=== PATIENT | male | born 1950 | race Caucasian/White ===

== ENCOUNTER 2018-07-05 18:16 | Emergency (ER) | payer OTHER, MEDICARE ==
--- NOTE | 2018-07-05 18:44 | ER Document Report ---
ED General - General Mode of Arrival: Medic Information source: Patient, Relative <JOHANNA KAMINSKI - Last Filed: 07/06/18 04:10> <DANTE JENNINGS - Last Filed: 07/06/18 04:16> - General Stated Complaint: SYNCOPE Time Seen by Provider: 07/05/18 18:36 Notes: 68 y.o male with DM, HLD, HTN, a PMHX of prostate cancer and a PSHx of open heart surgery for mitral valve replacement about 10 years ago presents to the ED via EMS s/p syncopal episode while at work. Pt's reports that she was called while he was working and was told that he lost consciousness, hit his head and that EMS was called. 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 Pt reports that he was outside and when he walked back inside he started to not feel well and tried to sit down. Pt is repeating his words and phrases, and nurse that saw him immediately upon arriving to the ED report that his repeating seems to be worsening as he is repeating more words that he was initially. Nurse denies EMS reporting any one sided weakness, facial droop or abnormal BGL. reports that yesterday he was well but that once last week when he came home from work he had to sit down because he was lightheaded and diaphoretic, she denies any LOC at that time. Pt denies any CP when trying to sit down prior to losing consciousness. He reports a current headache. (JOHANNA KAMINSKI) - Related Data Allergies/Adverse Reactions: strawberry Allergy (Verified 07/05/18 20:35) Past Medical History - General Information source: Patient - Social History Smoking Status: Current Some Day Smoker Chew tobacco use (# tins/day): No Smoking Education Provided: Yes Frequency of alcohol use: Occasional Drug Abuse: None Lives with: Spouse/Significant other <JOHANNA KAMINSKI - Last Filed: 07/06/18 04:10> - Social History Family History: None <DANTE JENNINGS - Last Filed: 07/06/18 04:16> Review of Systems - Review of Systems Constitutional: See HPI, Other - diaphoretic and lightheadedness last week EENT: No symptoms reported Cardiovascular: See HPI. denies: Chest pain Respiratory: No symptoms reported Gastrointestinal: No symptoms reported Genitourinary: No symptoms reported Male Genitourinary: No symptoms reported Musculoskeletal: No symptoms reported Skin: No symptoms reported Hematologic/Lymphatic: No symptoms reported Neurological/Psychological: See HPI, Lost consciousness, Headaches, Speech impairment - repeating words and phrases, Other - hit to head -: Yes All other systems reviewed and negative <JOHANNA KAMNISKI - Last Filed: 07/06/18 04:10> Physical Exam <JOHANNA KAMINSKI - Last Filed: 07/06/18 04:10> <DANTE JENNINGS - Last Filed: 07/06/18 04:16> - Vital signs Vitals: BP 142/72 H 07/05/18 18:46 - Notes Notes: PHYSICAL EXAM GENERAL: Alert and appears somewhat confused. HEAD: Normocephalic. Abrasion to RT maxilla and RT sikh. EYES: Pupils equal, round, and reactive to light. Extraocular movements intact. ENT: Oral mucosa moist, tongue midline. NECK: Initially in C-collar, after cleared pt had full ROM. Supple. Trachea midline. LUNGS: Clear to auscultation bilaterally, no wheezes, rales, or rhonchi. Breathing heavily. HEART: Regular rate and rhythm. No murmurs, gallops, or rubs. ABDOMEN: Soft, non-tender. Non-distended. Bowel sounds present in all 4 quadrants. No guarding, rebound, or rigidity. EXTREMITIES: Moves all 4 extremities spontaneously. No edema. No cyanosis. NEUROLOGICAL: Alert. Repetitive speech. Confused when asked questions, oriented to persona and time but disoriented to place. Pt is able to follow commands, however he is slow. Finger to nose test intact. Cranial nerves II through XII grossly intact. Biceps and patellar DTRs 2+ bilaterally. PSYCH: appears anxious. Poor eye contact. SKIN: Warm, dry, normal turgor. Abrasion to RT maxilla and RT sikh. (JOHANNA KAMINSKI) Course - Laboratory Result Diagrams: 07/05/18 18:45 07/05/18 18:45 <JOHANNA KAMINSKI - Last Filed: 07/06/18 04:10> - Laboratory Result Diagrams: 07/05/18 18:45 07/05/18 18:45 <DANTE JENNINGS - Last Filed: 07/06/18 04:16> - Re-evaluation Re-evalutation: 07/05/18 21:28 CBC shows leukocytosis at 18.1, coags normal, CMP shows low CO2 at 19, creatinine is bumped at 1.29, I have no baseline to compare to, cardiac enzymes negative, CT scan of the head is negative, CT scan of the cervical spine shows degenerative disc disease but no acute fracture or malalignment. Patient has had complete clearing of his neurologic status while in the emergency department, on recheck he is now alert and oriented to person place and time, has returned to his baseline per family, I see no neurologic deficits at this time either. Presentation is consistent with a concussion. NIH at this time is 0. Patient will be discharged to home. He has had multiple of these syncopal episodes, usually associated with working in the heat. Patient now that he is alert relates a history of passing out 1 week ago in a similar situation and again today having been outside feeling like he was getting overheated so he came inside and he passed out again. We did discuss that was very important with his history of having had a mitral valve replacement and a stent in the past that he follow-up with a fitter welder for Holter monitor and a stress test as well as possible echo as an outpatient but currently he has not had any murmur, any hypotension or any arrhythmias on the monitor patient will be discharged to home. (DANTE JENNINGS) - Vital Signs Vital signs: Temp Pulse Resp BP Pulse Ox 75 17 143/71 H 96 07/05/18 19:04 07/05/18 21:01 07/05/18 21:01 07/05/18 21:01 - Laboratory Laboratory results interpreted by me: 07/05/18 07/05/18 18:45 18:45 WBC 18.1 H RDW 14.2 H Seg Neuts % (Manual) 90 H Lymphocytes % (Manual) 6 L Abs Neuts (Manual) 16.3 H Carbon Dioxide 19 L Creatinine 1.29 H Est GFR (Non-Af Amer) 55 L Glucose 139 H Alkaline Phosphatase 171 H - EKG Interpretation by Me Additional EKG results interpreted by me: 07/05/18 21:31 EKG shows sinus rhythm at a rate of 88, PVCs, right bundle branch block, no ST segment elevations or depressions, no T-wave inversions per my interpretation. ( DANTE JENNINGS) Discharge <JOHANNA KAMINSKI - Last Filed: 07/06/18 04:10> <DANTE JENNINGS - Last Filed: 07/06/18 04:16> - Discharge Clinical Impression: Syncope Qualifiers: Syncope type: unspecified Qualified Code(s): R55 - Syncope and collapse Concussion Qualifiers: Encounter type: initial encounter Loss of consciousness presence/duration: with LOC of 30 min or less Qualified Code(s): S06.0X1A - Concussion with loss of consciousness of 30 minutes or less, initial encounter Condition: Stable Disposition: HOME, SELF-CARE Additional Instructions: Today passed out and hit your head. It appears the passing out likely came from working in the heat however you do have a history of heart problems and valve replacement. I strongly recommend that you follow-up with the on-call fitter welder Dr. Hogan to have a Holter monitor placed. They may also wish to perform a stress test or an ultrasound of your heart given your history of having a stent and a mitral valve replacement. You also have sustained a concussion from hitting your head. Should you develop vomiting, lose consciousness again, become confused or have any other new or concerning symptoms please return to the emergency department. Forms: Return to Work Referrals: TAMIR HOGAN MD [ACTIVE STAFF] - Follow up tomorrow Scribe Attestation: 07/06/18 04:12 I personally performed the services described in the documentation, reviewed and edited the documentation which was dictated to the scribe in my presence, and it accurately records my words and actions. (DANTE JENNINGS) Scribe Documentation - Scribe Written by Won:: Won Berger 07/05/18 1843 acting as scribe for :: Blake <JOHANNA KAMINSKI - Last Filed: 07/06/18 04:10>
[2018-07-05 19:09] LABS: HEMATOCRIT 45.7 % (37.9-51.0); MEAN CORPUSCULAR HEMOGLOBIN 27.1 pg (27.0-33.4); MEAN CORPUSCULAR HGB CONC 32.8 g/dL (32.0-36.0); MEAN CORPUSCULAR VOLUME 83 fl (80-97); PLATELET COUNT 212 10^3/uL (150-450); RED BLOOD COUNT 5.52 10^6/uL (4.35-5.55); RED CELL DISTRIBUTION WIDTH 14.2 % (11.5-14.0); WHITE BLOOD COUNT 18.1 10^3/uL (4.0-10.5)
[2018-07-05 19:15] LABS: INTERNATIONAL RATION (INR) 0.94; PROTHROMBIN TIME 13.1 SEC (11.4-15.4)
[2018-07-05 19:16] LABS: PARTIAL THROMBOPLASTIN TIME 24.2 SEC (23.5-35.8)
--- NOTE | 2018-07-05 19:29 | RADIOLOGY REPORT (SQ) ---
EXAM DESCRIPTION: CT HEAD WITHOUT COMPLETED DATE/TIME: 07/05/2018 7:03 pm REASON FOR STUDY: head injury COMPARISON: None. TECHNIQUE: Axial images acquired through the brain without intravenous contrast. Images reviewed wi th bone, brain and subdural windows. Additional sagittal and coronal reconstructions were generated. Images stored on PACS. All CT scanners at this facility use dose modulation, iterative reconstruction, and/or weight based d osing when appropriate to reduce radiation dose to as low as reasonably achievable (ALARA). [facility]: Dose Right [facility]: CareDose [facility]: Dose Right [facility]: Teradose 4D [facility]: [employer] RADIATION DOSE: CT Rad equipment meets quality standard of care and radiation dose reduction techniq ues were employed. CTDIvol: 55.2 mGy. DLP: 1112 mGy-cm. mGy. LIMITATIONS: None. FINDINGS: VENTRICLES: Normal size and contour. CEREBRUM: No masses. No hemorrhage. No midline shift. No evidence for acute infarction. Normal gra y/white matter differentiation. No areas of low density in the white matter. CEREBELLUM: No masses. No hemorrhage. No alteration of density. No evidence for acute infarction. EXTRAAXIAL SPACES: No fluid collections. No masses. ORBITS AND GLOBE: What appears to be a scleral buckle in circles the right optic globe. CALVARIUM: No fracture. PARANASAL SINUSES: No fluid or mucosal thickening. SOFT TISSUES: No mass or hematoma. OTHER: No other significant finding. IMPRESSION: NORMAL BRAIN CT WITHOUT CONTRAST. EVIDENCE OF ACUTE STROKE: NO. COMMENT: Quality ID # 436: Final reports with documentation of one or more dose reduction techniques (e.g., Automated exposure control, adjustment of the mA and/or kV according to patient size, use of iterative reconstruction technique) TECHNICAL DOCUMENTATION: JOB ID: [id number] [employer]- All Rights Reserved Reading location - IP/workstation name: [email or web address]
[2018-07-05 19:34] LABS: ABSOLUTE LYMPHOCYTES# (MANUAL) 1.1 10^3/uL (0.5-4.7); ABSOLUTE MONOCYTES # (MANUAL) 0.7 10^3/uL (0.1-1.4); ABSOLUTE NEUTROPHILS# (MANUAL) 16.3 10^3/uL (1.7-8.2); ALANINE AMINOTRANSFERASE 42 U/L (21-72); ALBUMIN 4.3 g/dL (3.5-5.0); ALKALINE PHOSPHATASE 171 U/L (38-126); ANION GAP 17 (5-19); ASPARTATE AMINO TRANSFERASE 37 U/L (17-59); BASOPHILS % (MANUAL) 0 % (0-2); BILIRUBIN,DIRECT 0.3 mg/dL (0.0-0.4); BILIRUBIN,TOTAL 0.6 mg/dL (0.2-1.3); BLOOD UREA NITROGEN 16 mg/dL (7-20); CALCIUM 9.3 mg/dL (8.4-10.2); CARBON DIOXIDE 19 mmol/L (22-30); CHLORIDE 107 mmol/L (98-107); CREATINE KINASE 114 U/L (55-170); EOSINOPHILS % (MANUAL) 0 % (0-6); GLUCOSE 139 mg/dL (75-110); LYMPHOCYTES % (MANUAL) 6 % (13-45); MONOCYTES % (MANUAL) 4 % (3-13); POTASSIUM 4.3 mmol/L (3.6-5.0); SEGMENTED NEUTROPHILS % (MAN) 90 % (42-78); SODIUM 142.6 mmol/L (137-145); TOTAL CELLS COUNTED 100; TOTAL PROTEIN 7.2 g/dL (6.3-8.2)
[2018-07-05 19:35] LABS: ANISOCYTOSIS SLIGHT; OVALOCYTES SLIGHT; PLATELET COMMENT ADEQUATE; POIKILOCYTOSIS SLIGHT
--- NOTE | 2018-07-05 19:35 | RADIOLOGY REPORT (SQ) ---
EXAM DESCRIPTION: CT CERVICAL SPINE WITHOUT COMPLETED DATE/TIME: 07/05/2018 7:03 pm REASON FOR STUDY: LOC, hit head COMPARISON: None. TECHNIQUE: Axial images acquired through the cervical spine without intravenous contrast. Images re viewed with lung, soft tissue and bone windows. Reconstructed coronal and sagittal MPR images review ed. Images stored on PACS. All CT scanners at this facility use dose modulation, iterative reconstruction, and/or weight based d osing when appropriate to reduce radiation dose to as low as reasonably achievable (ALARA). [facility]: Dose Right [facility]: CareDose [facility]: Dose Right [facility]: Teradose 4D [facility]: [employer] RADIATION DOSE: CT Rad equipment meets quality standard of care and radiation dose reduction techniq ues were employed. CTDIvol: 20.1 mGy. DLP: 426 mGy-cm. mGy. LIMITATIONS: None. FINDINGS: ALIGNMENT: Anatomic. MINERALIZATION: Normal. VERTEBRAL BODIES: No fractures or dislocation. DISCS: Disc spaces narrowed from C4-C7. Small anterior and posterior osteophytes are present at thes e levels. FACETS, LATERAL MASSES, POSTERIOR ELEMENTS: Mild hypertrophic facet changes in the mid cervical spine , right more than left. HARDWARE: None in the spine. VISUALIZED RIBS: No fractures. LUNG APICES AND SOFT TISSUES: No significant or acute findings. OTHER: No other significant finding. IMPRESSION: Degenerative disc disease, spondylosis, and facet arthropathy. No acute abnormality. TECHNICAL DOCUMENTATION: JOB ID: [id number] Quality ID # [id number]: Final reports with documentation of one or more dose reduction techniques (e.g., Au tomated exposure control, adjustment of the mA and/or kV according to patient size, use of iterative reconstruction technique) 2010 [employer]- All Rights Reserved Reading location - IP/workstation name: [email or web address]
[2018-07-05 19:44] LABS: CREATINE KINASE MB 1.86 ng/mL (<4.55); TROPONIN I < 0.012 ng/mL
[2018-07-05] MEDS ORDERED: NORMAL SALINE 1000 ML 1,000 ML IV ONE (20:08)
[2018-07-05] MEDS ORDERED: KETOROLAC TROMETHAMINE INJ/PF 30 MG/1 ML SDV IV ONE (21:30)
[2018-07-05 21:43] VITALS: BP 143/71
--- NOTE | 2018-07-05 23:32 | EKG REPORT ---
SEVERITY:- ABNORMAL ECG - SINUS TACHYCARDIA PAIRED VENTRICULAR PREMATURE COMPLEXES RIGHT BUNDLE BRANCH BLOCK BORDERLINE INFERIOR Q WAVES : Confirmed by: Carleen To MD 05-Jul-2018 23:31:53
== END 2018-07-05 21:59 | disposition home or self-care (01) ==
LOC: ER 18:16
DX: R55 Syncope and collapse (principal); S06.0X1A Concussion with loss of consciousness of 30 minutes or less, initial encounter; W18.30XA Fall on same level, unspecified, initial encounter; Y99.0 Civilian activity done for income or pay; F17.200 Nicotine dependence, unspecified, uncomplicated; E11.9 Type 2 diabetes mellitus without complications; Z85.46 Personal history of malignant neoplasm of prostate; Z95.2 Presence of prosthetic heart valve
CPT/HCPCS: 93005; 99285; 96361; 96374; 36415; 82553; 82550; 85025; 85610; 85730; 80053; 84484; 70450; 72125; 93010; J1885; J7030

== ENCOUNTER 2018-11-09 15:42 | Emergency (ER) | payer OTHER, MEDICARE ==
--- NOTE | 2018-11-09 15:48 | ER Document Report ---
ED General - General Stated Complaint: SHORTNESS OF BREATH Time Seen by Provider: 11/09/18 15:46 TRAVEL OUTSIDE OF THE [place] IN LAST 30 DAYS: No - HPI Patient complains to provider of: Syncope Notes: Patient here for evaluation of syncope. 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 Patient states he think he has had as he does have pain around his work. Patient otherwise denies any other trauma denies any other changes in his daily regimen states they prior was feeling fine no recent travel or sick contacts or recent antibiotics. Patient upon my evaluation denies any pain denies any chest pain abdominal pain. Patient does have a history of syncope in the past states he recently saw his customer service dispatcher is scheduled to have a wireless monitor implanted in his chest. Patient states his customer service dispatcher is concerned as he had PVCs at his last visit less than 48 hours prior to today - Related Data Allergies/Adverse Reactions: strawberry Allergy (Verified 11/09/18 16:46) Past Medical History - Social History Smoking Status: Unknown if Ever Smoked Family History: None Renal/ Medical History: Denies: Hx Peritoneal Dialysis Review of Systems - Review of Systems Constitutional: No symptoms reported EENT: No symptoms reported Cardiovascular: Syncope Respiratory: No symptoms reported Gastrointestinal: No symptoms reported Genitourinary: No symptoms reported Male Genitourinary: No symptoms reported Musculoskeletal: No symptoms reported Skin: No symptoms reported Hematologic/Lymphatic: No symptoms reported Neurological/Psychological: No symptoms reported -: Yes All other systems reviewed and negative Physical Exam - Vital signs Vitals: BP 124/62 11/09/18 15:47 Interpretation: Normal - General General appearance: Appears well, Alert - HEENT Head: Normocephalic, Atraumatic Eyes: Normal Pupils: PERRL - Respiratory Respiratory status: No respiratory distress Chest status: Nontender Breath sounds: Normal Chest palpation: Normal - Cardiovascular Rhythm: Regular Heart sounds: Normal auscultation Murmur: No - Abdominal Inspection: Normal Distension: No distension Bowel sounds: Normal Tenderness: Nontender Organomegaly: No organomegaly - Back Back: Normal, Nontender - Extremities General upper extremity: Normal inspection, Nontender, Normal color, Normal ROM , Normal temperature General lower extremity: Normal inspection, Nontender, Normal color, Normal ROM , Normal temperature, Normal weight bearing. No: Kiko's sign - Neurological Neuro grossly intact: Yes Cognition: Normal Orientation: AAOx4 Felix Coma Scale Eye Opening: Spontaneous Felix Coma Scale Verbal: Oriented Felix Coma Scale Motor: Obeys Commands [place] Coma Scale Total: 15 Speech: Normal Motor strength normal: LUE, RUE, LLE, RLE Sensory: Normal - Psychological Associated symptoms: Normal affect, Normal mood - Skin Skin Temperature: Warm Skin Moisture: Dry Skin Color: Normal Course - Re-evaluation Re-evalutation: 11/09/18 21:06 Patient from previous visit does have an increase in his creatinine with low bicarb possibly underlying dehydration patient did receive IV fluids. D-dimer troponins x2 were negative EKG does not show any acute changes. Patient was able ambulate around the ER without any difficulty. No concerning etiology for his syncope at this time patient does have good follow-up for the patient is good for outpatient evaluation and discharge - Vital Signs Vital signs: Temp Pulse Resp BP Pulse Ox 97.4 F 75 15 124/65 97 11/09/18 16:12 11/09/18 16:50 11/09/18 20:01 11/09/18 20:01 11/09/18 20:01 - Laboratory Result Diagrams: 11/09/18 16:07 11/09/18 16:07 Laboratory results interpreted by me: 11/09/18 11/09/18 11/09/18 16:07 16:07 17:30 WBC 12.8 H RDW 14.2 H Seg Neutrophils % 87.2 H Lymphocytes % 5.5 L Absolute Neutrophils 11.2 H Chloride 109 H Carbon Dioxide 19 L Creatinine 1.43 H Est GFR (Non-Af Amer) 49 L Alkaline Phosphatase 150 H Total Protein 6.2 L Urine Protein 30 H Urine Ketones TRACE H Discharge - Discharge Clinical Impression: Syncope Qualifiers: Syncope type: unspecified Qualified Code(s): R55 - Syncope and collapse Condition: Good Disposition: HOME, SELF-CARE Instructions: Syncopal Episode ([facility]) Additional Instructions: At this time your laboratory studies not show any critical pathology for your passing out episode today. I recommend following up with her primary care physician and your customer service dispatcher. Possible etiology of your passing out could be dehydration as that orthostatics are vital signs whenever he had to move around or indicative of dehydration also slight elevation in your renal function. Cardiac enzymes are negative would recommend eating a healthy diet drinking plenty of water and fluids return to the ER for any concerning symptoms follow-up with your primary care physician. Referrals: YANY UGALDE MD [Primary Care Provider] - Follow up as needed
[2018-11-09] MEDS ORDERED: NORMAL SALINE 1000 ML 1,000 ML IV ONE (15:49)
[2018-11-09] MEDS ORDERED: NORMAL SALINE 500 ML IV ONE (15:49)
[2018-11-09 16:40] LABS: ABSOLUTE BASOPHILS # (AUTO) 0.1 10^3/uL (0.0-0.2); ABSOLUTE EOSINOPHILS # (AUTO) 0.1 10^3/uL (0.0-0.6); ABSOLUTE LYMPHOCYTES (AUTO) 0.7 10^3/uL (0.5-4.7); ABSOLUTE MONOCYTES (AUTO) 0.8 10^3/uL (0.1-1.4); ABSOLUTE NEUT (AUTO) 11.2 10^3/uL (1.7-8.2); BASOPHILS % (AUTO) 0.5 % (0-2); EOSINOPHILS % (AUTO) 0.6 % (0-6); HEMATOCRIT 43.7 % (37.9-51.0); HEMOGLOBIN 14.3 g/dL (13.5-17.0); LYMPHOCYTES % (AUTO) 5.5 % (13-45); MEAN CORPUSCULAR HEMOGLOBIN 27.2 pg (27.0-33.4); MEAN CORPUSCULAR HGB CONC 32.7 g/dL (32.0-36.0); MEAN CORPUSCULAR VOLUME 83 fl (80-97); MONOCYTES % (AUTO) 6.2 % (3-13); PLATELET COUNT 206 10^3/uL (150-450); RED BLOOD COUNT 5.24 10^6/uL (4.35-5.55); RED CELL DISTRIBUTION WIDTH 14.2 % (11.5-14.0); SEGMENTED NEUTROPHILS % (AUTO) 87.2 % (42-78); TOTAL CELLS COUNTED % (AUTO) 100 %; WHITE BLOOD COUNT 12.8 10^3/uL (4.0-10.5)
--- NOTE | 2018-11-09 16:44 | RADIOLOGY REPORT (SQ) ---
EXAM DESCRIPTION: CT HEAD WITHOUT COMPLETED DATE/TIME: 11/09/2018 4:28 pm REASON FOR STUDY: syncope COMPARISON: 07/05/2018. TECHNIQUE: Axial images acquired through the brain without intravenous contrast. Images reviewed wi th bone, brain and subdural windows. Additional sagittal and coronal reconstructions were generated. Images stored on PACS. All CT scanners at this facility use dose modulation, iterative reconstruction, and/or weight based d osing when appropriate to reduce radiation dose to as low as reasonably achievable (ALARA). [facility]: Dose Right [facility]: CareDose [facility]: Dose Right [facility]: Teradose 4D [facility]: [employer] RADIATION DOSE: CT Rad equipment meets quality standard of care and radiation dose reduction techniq ues were employed. CTDIvol: 53.2 mGy. DLP: 1017 mGy-cm. mGy. LIMITATIONS: None. FINDINGS: VENTRICLES: Normal size and contour. CEREBRUM: No masses. No hemorrhage. No midline shift. No evidence for acute infarction. Normal gra y/white matter differentiation. No areas of low density in the white matter. CEREBELLUM: No masses. No hemorrhage. No alteration of density. No evidence for acute infarction. EXTRAAXIAL SPACES: No fluid collections. No masses. ORBITS AND GLOBE: No intra- or extraconal masses. Normal contour of globe without masses. CALVARIUM: No fracture. Patchy areas of sclerosis in the calvarium, nonspecific. PARANASAL SINUSES: No fluid or mucosal thickening. SOFT TISSUES: No mass or hematoma. OTHER: No other significant finding. IMPRESSION: 1. No acute intracranial abnormality. 2. Heterogeneous bone density, areas of patchy sc lerosis. Consider elective followup bone scan to evaluate the entirety of the skeletal system. EVIDENCE OF ACUTE STROKE: NO. COMMENT: Quality ID # 436: Final reports with documentation of one or more dose reduction techniques (e.g., Automated exposure control, adjustment of the mA and/or kV according to patient size, use of iterative reconstruction technique) TECHNICAL DOCUMENTATION: JOB ID: [id number]- All Rights Reserved Reading location - IP/workstation name: [email or web address]
[2018-11-09 16:45] LABS: ALANINE AMINOTRANSFERASE 25 U/L (21-72); ALBUMIN 3.9 g/dL (3.5-5.0); ALKALINE PHOSPHATASE 150 U/L (38-126); ANION GAP 11 (5-19); ASPARTATE AMINO TRANSFERASE 23 U/L (17-59); BILIRUBIN,DIRECT 0.2 mg/dL (0.0-0.4); BILIRUBIN,TOTAL 0.6 mg/dL (0.2-1.3); BLOOD UREA NITROGEN 18 mg/dL (7-20); CALCIUM 8.9 mg/dL (8.4-10.2); CARBON DIOXIDE 19 mmol/L (22-30); CHLORIDE 109 mmol/L (98-107); CREATINE KINASE 107 U/L (55-170); GLUCOSE 109 mg/dL (75-110); LIPASE 76.1 U/L (23-300); POTASSIUM 4.3 mmol/L (3.6-5.0); SODIUM 138.9 mmol/L (137-145); TOTAL PROTEIN 6.2 g/dL (6.3-8.2)
--- NOTE | 2018-11-09 16:46 | RADIOLOGY REPORT (SQ) ---
EXAM DESCRIPTION: CHEST 2 VIEWS COMPLETED DATE/TIME: 11/09/2018 4:29 pm REASON FOR STUDY: syncope COMPARISON: None. EXAM PARAMETERS: NUMBER OF VIEWS: two views TECHNIQUE: Digital Frontal and Lateral radiographic views of the chest acquired. RADIATION DOSE: NA LIMITATIONS: none FINDINGS: LUNGS AND PLEURA: No opacities, masses or pneumothorax. No pleural effusion. MEDIASTINUM AND HILAR STRUCTURES: No masses or contour abnormalities. HEART AND VASCULAR STRUCTURES: Old sternotomy for CABG. No cardiomegaly. BONES: No acute findings. HARDWARE: None in the chest. OTHER: No other significant finding. IMPRESSION: Old sternotomy. No acute findings TECHNICAL DOCUMENTATION: JOB ID: [id number] [employer]- All Rights Reserved Reading location - IP/workstation name: [email or web address]
[2018-11-09 16:55] LABS: INTERNATIONAL RATION (INR) 0.99; PROTHROMBIN TIME 13.6 SEC (11.4-15.4)
[2018-11-09 16:57] LABS: CREATINE KINASE MB 2.04 ng/mL (<4.55)
[2018-11-09 17:02] LABS: TROPONIN I < 0.012 ng/mL
[2018-11-09 18:41] LABS: APPEARANCE,URINE SLIGHTLY-CLOUDY; BILIRUBIN,URINE NEGATIVE (NEGATIVE); COLOR,URINE YELLOW; GLUCOSE, URINE NEGATIVE (NEGATIVE); KETONES,URINE TRACE mg/dL (NEGATIVE); LEUKOCYTE ESTERASE,URINE NEGATIVE (NEGATIVE); NITRITE,URINE NEGATIVE (NEGATIVE); PROTEIN,URINE 30 mg/dL (NEGATIVE); URINE SPECIFIC GRAVITY 1.019; UROBILINOGEN,URINE NEGATIVE mg/dL (<2.0)
[2018-11-09 20:23] VITALS: BP 124/65
--- NOTE | 2018-11-10 07:45 | EKG REPORT ---
SEVERITY:- ABNORMAL ECG - SINUS RHYTHM RIGHT BUNDLE BRANCH BLOCK : Confirmed by: Carleen To MD 10-Nov-2018 07:44:17
== END 2018-11-09 21:11 | disposition home or self-care (01) ==
LOC: ER 15:42
DX: R55 Syncope and collapse (principal); R06.02 Shortness of breath
CPT/HCPCS: 93005; 99285; 96360; 36415; 82553; 82550; 83690; 85025; 85610; 80053; 81001; 84484; 85379; 71046; 70450; 93010; J7030; J7040